=== PATIENT | female | born 2000 | race African-American/Black ===

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

== ENCOUNTER 2021-09-09 18:29 | Emergency (ER) | payer OTHER | END 2021-09-09 20:07 | disposition home or self-care (01) | LOC: ERS 18:29 | DX: U07.1 COVID-19 (principal) | CPT/HCPCS: 99283; U0003; U0005 ==

== ENCOUNTER 2022-01-07 18:44 | Emergency (ER) | payer OTHER | END 2022-01-07 20:40 | disposition home or self-care (01) | LOC: ERS 18:44 | DX: K64.9 Unspecified hemorrhoids (principal) | CPT/HCPCS: 99282 ==

== ENCOUNTER 2022-09-11 22:38 | Emergency (ER) | payer OTHER ==
[2022-09-11] MEDS ORDERED: Ondansetron ODT 4 MG TAB ONE (23:41)
[2022-09-11] MEDS ORDERED: Mag-Al 1200 mg/1200 mg/30 ML UDCUP ONE (23:43)
[2022-09-11 23:59] LABS: #Eosinphils 0.1 thou/uL (0.0-0.7); #Monocytes 0.3 thou/uL (0.11-0.59); #Neutrophils 3.9 thou/uL (1.40-6.50); %Basophils 0.4 % (0.0-1.0); %Eosinophils 0.9 % (0.0-10.0); %Lymphocytes 34.6 % (21.0-51.0); %Monocytes 5.1 % (0.0-10.0); %Neutrophils 58.9 % (42.0-75.0); Hemoglobin 12.4 g/dL (12.0-16.0); Mean Corpuscular HGB CONC 34.3 g/dL (32.0-36.0); Mean Corpuscular Hemoglobin 30.8 pg (27.0-31.0); Mean Corpuscular Volume 89.8 fl (78.0-98.0); Mean Platelet Volume 11.2 fL (7.4-10.4); Platelet Count 244 10x3/uL (130-400); RBC Distribution Width 12.5 % (11.5-14.5); Red Blood Cell (RBC) Count 4.03 mill/uL (4.20-5.40); White Blood Cell (WBC) Count 6.7 10x3/uL (4.8-10.8)
[2022-09-12 00:02] LABS: Bacteria/HPF None Seen HPF (None Seen); Bilirubin Negative (Negative); Blood, Urine Negative (Negative); CAUTI Indications for Culture Pelvic or flank pain; Clarity Clear (Clear); Glucose, Urine (Dipstick) Normal (Negative); Ketone, Urine Negative (Negative); Leukocyte Negative Leu/uL (Negative); Nitrite Negative (Negative); Protein, Urine (Dipstick) Negative (Neg-Trace); RBC/HPF 0-3 HPF (0-3); Specific Gravity, Urine 1.024 (1.002-1.036); Urobilinogen Normal mg/dL (Less than 2); WBC/HPF 0-3 HPF (0-3)
[2022-09-12 00:03] LABS: Pregnancy Test - Urine (BHCG) Negative (Negative); Pregu Control Background? CLEAR/WHITE (CLR/WHITE); Pregu Control Bar Appear? YES (CONTROL BAR); Specific Gravity 1.024 (1.002-1.036); Urine Culture Reflex No No
[2022-09-12 00:26] LABS: ALT (SGPT) 20 U/L (8-55); AST (SGOT) 16 U/L (5-34); Albumin 4.4 g/dL (3.5-5.0); Alkaline Phosphatase 60 U/L (40-110); Anion Gap 12 mmol/L (10-20); BUN (Urea Nitrogen) 14 mg/dL (7.0-18.7); Bilirubin, Total 0.4 mg/dL (0.2-1.2); Calc. Creatinine Clearance 0 mL/min (70-130); Calcium 9.8 mg/dL (7.8-10.44); Carbon Dioxide 25 mmol/L (22-29); Chloride 104 mmol/L (98-107); Estimated GFR 111; Globulin 3.2 g/dL (2.4-3.5); Glucose 81 mg/dL (70-105); Lipase 30 U/L (8-78); Potassium 3.8 mmol/L (3.5-5.1); Protein, Total 7.6 g/dL (6.0-8.3); Sodium 137 mmol/L (136-145)
== END 2022-09-12 00:52 | disposition home or self-care (01) ==
LOC: ERS 22:38
DX: R19.7 Diarrhea, unspecified (principal); R10.32 Left lower quadrant pain; R11.2 Nausea with vomiting, unspecified
CPT/HCPCS: 36415; 80053; 81001; 81025; 83690; 85025; 99284; Q0162

== ENCOUNTER 2022-10-13 23:24 | Emergency (ER) | payer OTHER | END 2022-10-13 23:59 | disposition home or self-care (01) | LOC: ERS 23:24 | DX: S46.811A Strain of other muscles, fascia and tendons at shoulder and upper arm level, right arm, initial encounter (principal); X50.0XXA Overexertion from strenuous movement or load, initial encounter | CPT/HCPCS: 99283 ==